=== PATIENT | male | born 1950 | race Caucasian/White ===

== ENCOUNTER 2022-04-05 12:18 | Emergency (ER) | payer SELFPAY ==
[~2022-04-05] VITALS: Ht 170.1 cm; Wt 71.6 kg
--- NOTE | 2022-04-05 12:32 | ED Upper Extremity ---
General Chief Complaint: Upper Extremity Stated Complaint: LT SHOULDER INJ Source: patient History of Present Illness Date Seen by Provider: Apr 05, 2022 Time Seen by Provider: 12:20 Initial Comments 71 yo male presenting with complaints of left shoulder pain and bump on top of shoulder after falling and landing on concrete parking stop. He denies hitting his head or losing consciousness. He has abrasion to left elbow and back of hand. Denies tingling, weakness, nausea, vomiting, dizziness, chest pain, abdominal pain or other injury from fall. He rates his pain around 2 out of 10. He has not taken anything for the pain. Pain increased with palpation and movement. 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 Onset: just prior to arrival Severity: mild Pain/Injury Location: left shoulder Method of Injury: fell (tripped and hit concrete parking stop) Modifying Factors: Worse With Movement Allergies and Home Medications Allergies Coded Allergies: No Known Drug Allergies (Unverified , 04/05/22) Patient Home Medication List Home Medication List Reviewed: Yes Review of Systems Constitutional: No chills, No dizziness, No fever EENTM: no symptoms reported Respiratory: no symptoms reported Cardiovascular: no symptoms reported Gastrointestinal: no symptoms reported Genitourinary: no symptoms reported Musculoskeletal: see HPI Skin: see HPI Psychiatric/Neurological: Denies Numbness, Denies Paresthesia, Denies Tingling, Denies Weakness Past Wvnwmai-Cgyidx-Pskthb Hx Patient Social History Tobacco Use?: No Use of E-Cig and/or Vaping dev: No Substance use?: No Alcohol Use?: No Past Medical History Respiratory: No Cardiac: No Neurological: No Genitourinary: No Gastrointestinal: No Musculoskeletal: No Endocrine: No HEENT: No Cancer: No Psychosocial: No Integumentary: No Physical Exam Vital Signs Vital Signs - First Documented 04/05/22 12:28 Temp 35.8 Pulse 76 Resp 16 B/P (MAP) 158/98 (118) Pulse Ox 98 O2 Delivery Room Air Capillary Refill : Height, Weight, BMI Height: '" Weight: lbs. oz. kg; BMI Method: General Appearance: WD/WN, no apparent distress HEENT: PERRL/EOMI Neck: non-tender, full range of motion, supple, normal inspection Cardiovascular: normal peripheral pulses, regular rate, rhythm Shoulder: deformity (raised area that is tender to palpation over left AC joint), limited ROM (due to pain in left shoulder), pain (pain to top of left shoulder over AC joint where he has deformity) Elbow/Forearm: normal ROM, Bilateral, abrasions (superficial abrasion to lateral elbow) Wrist: Yes normal inspection, Yes non-tender, Yes no evidence of injury, Yes normal ROM Hand: normal ROM, Bilateral, abrasions (superficial abrasion to back of hand) Neurologic/Tendon: normal sensation, normal motor functions, normal tendon func tions Neurologic/Psychiatric: alert, oriented x 3 Skin: normal color, warm/dry Progress/Results/Core Measures Results/Orders My Orders Orders - NELIA CHOI MD Ice: Apply To Affected Area (04/05/22 12:26) Shoulder 3 View Left (04/05/22 12:26) Ed Ortho/Other Supplies Order (04/05/22 12:42) Orthopedic Equiment (04/05/22 12:42) Vital Signs/I&O 04/05/22 04/05/22 12:28 12:47 Temp 35.8 35.8 Pulse 76 76 Resp 16 16 B/P (MAP) 158/98 (118) 158/98 Pulse Ox 98 98 O2 Delivery Room Air Room Air Progress Progress Note #1: Progress Note patient refused pain medicine. Ice pack and elevation and xrays ordered. Progress Note #2: Progress Note Xrays show AC joint separation on left shoulder. Treat with ice, sling, rest, elevation, NSAID and/or Acetaminophen as needed for pain. Check with clinic and establish care with provider for follow up of the shoulder. If not healing and doing better he may need physical therapy or to see Orthopedics. Diagnostic Imaging Diagonstic Imaging: Xray Plain Films/CT/US/NM/MRI: other (left shoulder) Comments [facility] [employer]. [place], [place] NAME: ROMELIA PIERRE Krunal [facility] REC#: [id number] PT STATUS: DEP ER : 1950 PHYSICIAN: NELIA CHOI MD ADMIT DATE: 04/05/22/ER FS Draft Date of Exam:04/05/22 SHOULDER 3 VIEW LEFT INDICATION: pain and deformity after fall TECHNIQUE: Three views of the left shoulder. CORRELATION STUDY: None. FINDINGS: Slight inferior positioning of the acromion in relation to the distal clavicle without significant diastasis. Glenohumeral joint is maintained. There is no acute fracture. Visualized left lung apex is unremarkable. IMPRESSION: 1. Slight asymmetric alignment of the acromioclavicular joint. Underlying ligamentous injury is not excluded. No zabrina dislocation or acute bony abnormality. Dictated on workstation # [id number] Dict: 04/05/22 1243 Trans: 04/05/22 1300 AS6 [id number] Interpreted by: CORTNEY WESTBROOK DO Electronically signed by: Reviewed: Reviewed by Me Departure Impression Primary Impression: Separation of acromioclavicular joint due to injury Additional Impressions: Acute pain of left shoulder due to trauma Fall from standing Qualified Codes: W19.XXXA - Unspecified fall, initial encounter Abrasion of left elbow, initial encounter Abrasion of left hand, initial encounter Disposition: 01 HOME, SELF-CARE Condition: Stable Departure-Patient Inst. Decision time for Depature: 12:36 Referrals: NO,LOCAL PHYSICIAN (PCP) Primary Care Physician [facility] Patient Instructions: How to Use a Shoulder Sling ED, Preventing Falls ED, Shoulder Pain ED, Using Cold for Pain Add. Discharge Instructions: Wear sling for next 3-4 days to help with pain and swelling of left shoulder. Af ter 3-4 days you would want to make sure you are taking your arm out of the sling and moving your shoulder to help keep it from getting "frozen" and stiff. Ice 20-30 minutes every 3-4 hours as needed for pain and swelling. May take Ibuprofen 600 mg every 8 hours or Acetaminophen 650 mg every 6 hours as needed for pain. Establish care with primary care provider in clinic for continued pain and problems as they may need to refer you to physical therapy or Orthopedics if your shoulder is getting more painful or stiff. You could call [facility] clinic at [phone] to get established with a local provider, or call clinic of your choice for establishing care with primary care provider. All discharge instructions reviewed with patient and/or family. Voiced unders tanding. NELIA CHOI MD Apr 05, 2022 12:32
[2022-04-05 12:47] VITALS: BP 158/98
--- NOTE | 2022-04-05 13:01 | Diagnostic Imaging Report ---
INDICATION: pain and deformity after fall TECHNIQUE: Three views of the left shoulder. CORRELATION STUDY: None. FINDINGS: Slight inferior positioning of the acromion in relation to the distal clavicle without significant diastasis. Glenohumeral joint is maintained. There is no acute fracture. Visualized left lung apex is unremarkable. IMPRESSION: 1. Slight asymmetric alignment of the acromioclavicular joint. Underlying ligamentous injury is not excluded. No zabrina dislocation or acute bony abnormality. Dictated by: Dictated on workstation # [id number]
== END 2022-04-05 12:52 | disposition home or self-care (01) ==
LOC: ER FS 12:20
DX: S43.102A Unspecified dislocation of left acromioclavicular joint, initial encounter (principal); S60.512A Abrasion of left hand, initial encounter; S50.312A Abrasion of left elbow, initial encounter; W01.198A Fall on same level from slipping, tripping and stumbling with subsequent striking against other object, initial encounter; Y92.481 Parking lot as the place of occurrence of the external cause
CPT/HCPCS: 73030; 99283; A4565